=== PATIENT | female | born 1955 | race Caucasian/White ===

== ENCOUNTER 2017-09-14 21:47 | Emergency (ER) | payer OTHER ==
[2017-09-14] MEDS ORDERED: predniSONE 20 MG TAB PO ONE (21:57)
[2017-09-14] MEDS ORDERED: diphenhydrAMINE 25 MG CAP PO ONE (21:57)
[2017-09-14] MEDS ORDERED: FAMOTIDINE 20 MG TAB PO ONE (21:57)
[2017-09-14 22:03] VITALS: TEMP 97.3; O2SAT 95
--- NOTE | 2017-09-14 22:34 | EDPHY ---
H & P Stated Complaint: red raised rash on neck, face, and scalp since this AM. burning/pain/itchy Time Seen by Provider: 09/14/17 21:52 HPI/ROS: CHIEF COMPLAINT: Rash HISTORY OF PRESENT ILLNESS: This is a 62-year-old female with a known cinnamon allergy who has been repeatedly exposed to cinnamon over the past week. She has developed a raised pruritic rash over her neck and face. She has been taking Benadryl on and off, her last dose was about 3 hours ago. She has also been using a triamcinolone cream. However, the rash has worsened. She has had similar rashes in the past after being exposed to cinnamon. She is not having any difficulty breathing. She does not have a sensation of her throat closing. He has not been dizzy or lightheaded. REVIEW OF SYSTEMS: A ten point review of systems was performed and is negative with the exception of the items mentioned in the HPI. Past medical history: Hypertension Social history: She lives in [place], is here visiting her daughter. She does not use tobacco products. General Appearance: Alert. Vital signs reviewed. blood pressure at triage was 149/112. Eyes: Pupils equal and round, no conjunctival injection, no discharge. Anicteric. ENT, Mouth: Mucous membranes are moist, no oropharyngeal erythema or edema. Swallowing easily. Neck: No lymphadenopathy, supple. Trachea midline. Respiratory: Lungs are clear to auscultation; no wheezes, rales, or rhonchi. Cardiovascular: Regular rate and rhythm; no murmur, rub, or gallop. Gastrointestinal: Abdomen is soft and nontender, no masses or organomegaly, bowel sounds normal. Skin: Urticarial rash over the neck and face. Neurological: Alert and oriented. Moving all four extremities easily and equally. Psychiatric: Normal affect. - Personal History Current Tetanus Diphtheria and Acellular Pertussis (TDAP): Yes - Medical/Surgical History Hx Asthma: No Hx Chronic Respiratory Disease: No Hx Diabetes: No Hx Cardiac Disease: Yes Hx Renal Disease: No Hx Cirrhosis: No Hx Alcoholism: No Hx HIV/AIDS: No Hx Splenectomy or Spleen Trauma: No Other PMH: HTN - Social History Smoking Status: Never smoked Constitutional: Initial Vital Signs Temperature (C) 36.3 C 09/14/17 22:01 Heart Rate 90 09/14/17 22:01 Respiratory Rate 16 09/14/17 22:01 Blood Pressure 149/112 H 09/14/17 22:01 O2 Sat (%) 95 09/14/17 22:01 O2 Delivery Mode Room Air Allergies/Adverse Reactions: cinnamon Allergy (Verified 09/14/17 21:59) cottonwood Allergy (Uncoded 09/14/17 21:59) jalapeno peppers Allergy (Uncoded 09/14/17 21:59) Home Medications: Medication Instructions Recorded Aspirin [Aspirin 81mg (*)] 09/14/17 Hydrochlorothiazide [HCTZ (*)] 09/14/17 Lisinopril 09/14/17 Multivitamin [Multi-Vitamin Daily] 09/14/17 Ubidecarenone [Co Q-10] 09/14/17 VITAMIN D 09/14/17 predniSONE 20 mg PO DAILY #6 tablet 09/14/17 Medical Decision Making ED Course/Re-evaluation: 62-year-old with urticaria, presumed allergic reaction to cinnamon. She was given Benadryl, Pepcid, and prednisone orally in the emergency department. She will continue with these medications. She will be returning to her home state this week and will follow up with an director [place]. She was hypertensive in the emergency department and will have her blood pressure rechecked by her PCP. We also discussed symptomatic treatment for her pruritus. She has no airway compromise, is breathing easily. She is not hypotensive--no anaphylaxis. Nothing to suggest [facility] [place]. - Data Points Medications Given: Discontinued Medications Diphenhydramine HCl (Benadryl) 50 mg PO EDNOW ONE Stop: 09/14/17 21:58 Last Admin: 09/14/17 22:10 Dose: Not Given Famotidine (Pepcid) 40 mg PO EDNOW ONE Stop: 09/14/17 21:58 Last Admin: 09/14/17 22:06 Dose: 40 mg Prednisone (Prednisone) 60 mg PO EDNOW ONE Stop: 09/14/17 21:58 Last Admin: 09/14/17 22:07 Dose: 60 mg Departure - Departure Disposition: Home, Routine, Self-Care Clinical Impression: Urticaria Condition: Good Instructions: Urticaria (ED) Additional Instructions: Take the prednisone as prescribed, 20 mg twice daily for the next 3 days. While you are taking the prednisone you should also take Pepcid according to the instructions on the box. You can buy this [id number]. I also recommend continuing with Benadryl on a regular schedule, every 6-8 hours. Do all of this for the next three days. I recommend Sarna lotion for the itching. You can also try hydrocortisone cream if you would like. You can buy both of these [id number]. If you develop worsening hives, trouble breathing, throat swelling, any new or concerning symptoms you should be re-evaluated. Referrals: NONE *PRIMARY CARE P,. [Primary Care Provider] - As per Instructions Prescriptions: predniSONE 20 mg PO DAILY #6 tablet
[2017-09-14 22:53] VITALS: BP 150/93; PULSE 85; RESP 18
== END 2017-09-14 22:53 | disposition home or self-care (01) ==
LOC: CED 21:47
DX: L50.9 Urticaria, unspecified (principal); I10 Essential (primary) hypertension; Z79.82 Long term (current) use of aspirin